=== PATIENT | female | born 1995 | race African-American/Black ===

== ENCOUNTER 2017-06-05 14:34 | Emergency (ER) | payer MEDICAID, OTHER ==
[~2017-06-05] VITALS: Ht 175.3 cm; Wt 60.8 kg
[2017-06-05 14:35] VITALS: BP 124/81
== END 2017-06-05 15:25 | disposition left against medical advice (07) ==
LOC: ED 15:19
DX: T74.21XA Adult sexual abuse, confirmed, initial encounter (principal); Z53.21 Procedure and treatment not carried out due to patient leaving prior to being seen by health care provider; Y93.89 Activity, other specified; Y99.8 Other external cause status; Y92.89 Other specified places as the place of occurrence of the external cause; Y07.9 Unspecified perpetrator of maltreatment and neglect

== ENCOUNTER 2017-06-05 16:27 | Emergency (ER) | payer MEDICAID, OTHER ==
[~2017-06-05] VITALS: Ht 175.3 cm; Wt 60.7 kg
[2017-06-05] MEDS ORDERED: AZITHROMYCIN 500 MG TABLET PO ONE (17:30)
[2017-06-05] MEDS ORDERED: CEFTRIAXONE 250 MG IM ONE (17:30)
[2017-06-05] MEDS ORDERED: AZITHROMYCIN 500 MG TABLET ONE (17:45)
[2017-06-05] MEDS ORDERED: CEFTRIAXONE 250 MG ONE (17:46)
[2017-06-05] MEDS ORDERED: LIDOCAINE 1%, 20ML ONE (17:46)
[2017-06-05 17:55] VITALS: BP 113/75
== END 2017-06-05 18:10 | disposition home or self-care (01) ==
LOC: ED 18:04
DX: T74.21XA Adult sexual abuse, confirmed, initial encounter (principal); F17.200 Nicotine dependence, unspecified, uncomplicated; F12.10 Cannabis abuse, uncomplicated
CPT/HCPCS: 96372; 99283; J0696

== ENCOUNTER 2017-06-09 18:00 | Emergency (ER) | payer SELFPAY ==
[~2017-06-09] VITALS: Ht 175.3 cm; Wt 58.5 kg
[2017-06-09] MEDS ORDERED: SODIUM CHLORIDE 0.9% 1,000ML IVBOLUS ONE (18:30)
[2017-06-09] MEDS ORDERED: FAMOTIDINE 20 MG/2 ML IVP ONE (18:30)
[2017-06-09] MEDS ORDERED: SODIUM CHLORIDE FLUSH 10ML SYR IVF ONE (18:30)
[2017-06-09] MEDS ORDERED: ONDANSETRON 2MG/ML, 2ML IVPush ONE (18:30)
[2017-06-09] MEDS ORDERED: MAALOX/HYOSCYAMINE/LIDOCAINE 45 ML BTL PO ONE (18:30)
[2017-06-09] MEDS ORDERED: MAALOX/HYOSCYAMINE/LIDOCAINE 45 ML BTL ONE (18:41)
[2017-06-09] MEDS ORDERED: ONDANSETRON 2MG/ML, 2ML ONE (18:41)
[2017-06-09] MEDS ORDERED: FAMOTIDINE 20 MG/2 ML ONE (18:41)
[2017-06-09 19:05] LABS: HEMATOCRIT 45.1 % (34.6-47.8); HEMOGLOBIN 15.2 g/dL (11.7-16.4); WHITE BLOOD COUNT 7.3 x10^3/uL (3.4-10)
[2017-06-09 19:16] LABS: BLOOD UREA NITROGEN 11 mg/dL (7-18)
[2017-06-09 19:19] LABS: ASPARTATE AMINO TRANSFERASE 21 U/L (15-37)
[2017-06-09 20:29] VITALS: BP 124/78
[2017-06-09] MEDS ORDERED: DICYCLOMINE 10 MG/ML, 2ML IM ONE (20:30)
== END 2017-06-09 20:42 | disposition home or self-care (01) ==
LOC: ED 18:54
DX: R19.7 Diarrhea, unspecified (principal); R11.2 Nausea with vomiting, unspecified; R10.30 Lower abdominal pain, unspecified
CPT/HCPCS: 36415; 74020; 80053; 81001; 84703; 85025; 87086; 96361; 96372; 96374; 96375; 99285; J0500; J2405; J7030; S0028

== ENCOUNTER 2017-12-08 05:25 | Emergency (ER) | payer SELFPAY ==
[~2017-12-08] VITALS: Ht 172.7 cm; Wt 65.0 kg
[2017-12-08 05:28] VITALS: BP 129/80
[2017-12-08] MEDS ORDERED: CARBAMIDE PEROXIDE EAR DROPS 6.5%, 15ML ONE (05:54)
[2017-12-08] MEDS ORDERED: CARBAMIDE PEROXIDE EAR DROPS 6.5%, 15ML EACH EAR ONE (06:30)
== END 2017-12-08 07:36 | disposition home or self-care (01) ==
LOC: ED 07:06
DX: H61.23 Impacted cerumen, bilateral (principal); H66.92 Otitis media, unspecified, left ear; F17.200 Nicotine dependence, unspecified, uncomplicated
CPT/HCPCS: 69209; 99283

== ENCOUNTER 2017-12-26 02:51 | Emergency (ER) | payer MEDICAID, OTHER ==
[~2017-12-26] VITALS: Ht 170.2 cm; Wt 60.0 kg
[2017-12-26 02:53] VITALS: BP 129/88
== END 2017-12-26 04:25 | disposition home or self-care (01) ==
LOC: ED 04:19
DX: T76.21XA Adult sexual abuse, suspected, initial encounter (principal); X58.XXXA Exposure to other specified factors, initial encounter; Y93.89 Activity, other specified; Y92.89 Other specified places as the place of occurrence of the external cause; Y99.8 Other external cause status
CPT/HCPCS: 99281

== ENCOUNTER 2018-03-09 18:08 | Emergency (ER) | payer MEDICAID ==
[~2018-03-09] VITALS: Ht 172.7 cm; Wt 63.1 kg
[2018-03-09 20:02] LABS: AMPHETAMINE SCREEN, URINE Negative (Negative); BARBITURATE SCREEN, URINE Negative (Negative); BENZODIAZEPINE SCREEN, URINE Negative (Negative); CANNABINOID SCREEN, URINE Positive (Negative); COCAINE SCREEN, URINE Negative (Negative); METHADONE SCREEN, URINE Negative (Negative); OPIATE SCREEN, URINE Negative (Negative)
[2018-03-09 20:07] VITALS: BP 113/72
== END 2018-03-09 21:21 | disposition home or self-care (01) ==
LOC: ED 21:00
DX: T76.21XA Adult sexual abuse, suspected, initial encounter (principal); M54.2 Cervicalgia; Z79.899 Other long term (current) drug therapy; Y04.8XXA Assault by other bodily force, initial encounter; Y93.89 Activity, other specified; Y92.89 Other specified places as the place of occurrence of the external cause; Y99.8 Other external cause status
CPT/HCPCS: 72050; 80307; 99285

== ENCOUNTER 2018-09-06 01:56 | Emergency (ER) | payer MEDICAID ==
[~2018-09-06] VITALS: Ht 172.7 cm; Wt 63.7 kg
[2018-09-06 01:57] VITALS: BP 133/74
[2018-09-06 03:35] LABS: BASOPHILS # (AUTO) 0.03 x10^3/uL (0-0.1); BASOPHILS % (AUTO) 1 % (0-1); EOSINOPHILS # (AUTO) 0.05 x10^3/uL (0-0.4); EOSINOPHILS % (AUTO) 1 % (1-7); LYMPHOCYTES # (AUTO) 2.63 x10^3/uL (1-3.4); LYMPHOCYTES % (AUTO) 49 % (22-44); MD NO; MEAN CORPUSCULAR HGB CONC 33.8 g/dL (32.4-35.8); MEAN CORPUSCULAR VOLUME 94.7 fL (80-100); MEAN PLATELET VOLUME 7.2 fL (7.4-10.4); MONOCYTES # (AUTO) 0.44 x10^3/uL (0.2-0.8); MONOCYTES % (AUTO) 8 % (2-9); NEUTROPHILS # (AUTO) 2.21 x10^3/uL (1.8-6.8); NEUTROPHILS % (AUTO) 41 % (42-75); PLATELET COUNT 206 x10^3/uL (130-400); RED BLOOD COUNT 4.63 x10^6/uL (3.82-5.3); RED CELL DISTRIBUTION WIDTH 14.6 % (9.6-15.2)
[2018-09-06 03:44] LABS: ALANINE AMINOTRANSFERASE 22 U/L (12-78); ALBUMIN 4.1 g/dL (3.4-5.0); ANION GAP 8 mmol/L (5-15); CALCIUM 9.5 mg/dL (8.5-10.1); CHLORIDE 108 mmol/L (98-107); CREATININE 0.98 mg/dL (0.55-1.02)
[2018-09-06 03:48] LABS: ALKALINE PHOSPHATASE 72 U/L (45-117); BILIRUBIN,TOTAL 0.5 mg/dL (0.2-1.0); TOTAL PROTEIN 7.5 g/dL (6.4-8.2)
[2018-09-06 03:48] LABS: AMPHETAMINE SCREEN, URINE Negative (Negative); BARBITURATE SCREEN, URINE Negative (Negative); BENZODIAZEPINE SCREEN, URINE Negative (Negative); CANNABINOID SCREEN, URINE Positive (Negative); COCAINE SCREEN, URINE Negative (Negative); METHADONE SCREEN, URINE Negative (Negative); OPIATE SCREEN, URINE Negative (Negative)
[2018-09-06 03:49] LABS: ACETAMINOPHEN < 2 mcg/mL (10-30); SALICYLATE LEVEL < 1.7 mg/dL (2.8-20.0)
== END 2018-09-06 06:20 | disposition home or self-care (01) ==
LOC: ED 02:57
DX: F41.1 Generalized anxiety disorder (principal); F17.200 Nicotine dependence, unspecified, uncomplicated; Z72.9 Problem related to lifestyle, unspecified; Z91.14 Patient's other noncompliance with medication regimen; Z63.8 Other specified problems related to primary support group; Z75.9 Unspecified problem related to medical facilities and other health care
CPT/HCPCS: 36415; 80053; 80307; 80329; 84703; 85025; 99284; G0480

== ENCOUNTER 2019-09-20 11:30 | Emergency (ER) | payer MEDICAID ==
[~2019-09-20] VITALS: Ht 175.3 cm; Wt 84.9 kg
[2019-09-20 11:32] VITALS: BP 118/76
[2019-09-20] MEDS ORDERED: AZITHROMYCIN 500 MG TABLET PO ONE (12:30)
[2019-09-20] MEDS ORDERED: CEFTRIAXONE 250 MG IM ONE (12:30)
[2019-09-20 12:39] LABS: CLUE CELLS NONE SEEN (NONE SEEN); WET PREP WBCS NONE SEEN (FEW)
[2019-09-20] MEDS ORDERED: CEFTRIAXONE 250 MG ONE (12:49)
[2019-09-20] MEDS ORDERED: LIDOCAINE-MPF 1%, 2ML ONE (12:49)
[2019-09-20] MEDS ORDERED: AZITHROMYCIN 500 MG TABLET ONE (12:49)
--- NOTE | 2019-09-20 12:56 | NUR ---
TASK RN: MEDICATED PER EMAR REVIEWED POC. INCLUDING IMPORTANCE OF FOLLOWING UP WITH HEALTH DEPARTMENT FOR VIRAL STI CHECK
== END 2019-09-20 13:16 | disposition home or self-care (01) ==
LOC: ED 13:10
DX: N76.0 Acute vaginitis (principal); B00.9 Herpesviral infection, unspecified
CPT/HCPCS: 87210; 87491; 87591; 87808; 96372; 99283; J0696

== ENCOUNTER 2020-08-03 19:14 | Emergency (ER) | payer SELFPAY ==
[~2020-08-03] VITALS: Ht 175.3 cm; Wt 73.5 kg
[2020-08-03] MEDS ORDERED: SODIUM CHLORIDE FLUSH 10ML SYR IVF ONE (19:30)
[2020-08-03 19:54] LABS: ALANINE AMINOTRANSFERASE 20 U/L (12-78); ALBUMIN 3.8 g/dL (3.4-5.0); ANION GAP 3 mmol/L (5-15); CALCIUM 9.1 mg/dL (8.5-10.1); CHLORIDE 106 mmol/L (98-107)
[2020-08-03 19:55] LABS: BASOPHILS % (AUTO) 1 % (0-1); EOSINOPHILS % (AUTO) 2 % (1-7); LYMPHOCYTES % (AUTO) 51 % (22-44); MEAN CORPUSCULAR HEMOGLOBIN 30.7 pg (27.0-34.8); MEAN CORPUSCULAR HGB CONC 32.7 g/dL (32.4-35.8); MEAN PLATELET VOLUME 7.2 fL (7.4-10.4); MONOCYTES % (AUTO) 10 % (2-9); NEUTROPHILS % (AUTO) 38 % (42-75); PLATELET COUNT 237 x10^3/uL (130-400); RED BLOOD COUNT 4.33 x10^6/uL (3.82-5.3); RED CELL DISTRIBUTION WIDTH 14.9 % (9.6-15.2)
[2020-08-03 19:59] LABS: ALKALINE PHOSPHATASE 79 U/L (45-117); BILIRUBIN,TOTAL 0.5 mg/dL (0.2-1.0); CREATININE 0.98 mg/dL (0.55-1.02); TOTAL PROTEIN 7.1 g/dL (6.4-8.2)
[2020-08-03 20:39] LABS: MICROSCOPIC INDICATED
--- NOTE | 2020-08-03 20:41 | NUR ---
pt reports coming into ED for abdominal pain and left leg pain, pt states her left knee is painful and sitff, denies trauma, abdomen was nauseated and she was vomitting two days prior but is no longer having nausea. pt states its just a cramping pain now. pt resting on gurney, provided warm blankets, ua walked to lab. nad, call light on lap. wctm. pt placed on spo2/bp monitoring at this time. waiting for us/ua results.
[2020-08-03 20:44] LABS: MD SCAN
[2020-08-03] MEDS ORDERED: IBUPROFEN 800 MG TABLET ONE (21:29)
[2020-08-03] MEDS ORDERED: IBUPROFEN 800 MG TABLET PO ONE (21:30)
[2020-08-03 21:31] VITALS: BP 104/67
--- NOTE | 2020-08-03 21:31 | NUR ---
Patient given discharge instructions and they have confirmed that they understand the instructions. Patient ambulatory with SLIGHT LIMP, NAD, DENIES ADDITIONAL NEEDS OR QUESTIONS, PROVIDED CRACKERS FOR COMFORT AT TIME OF DC. NO PERSONAL BELONGINGS LEFT IN ROOM AFTER DC
--- NOTE | 2020-08-03 22:07 | NUR ---
pt provided snacks for dc. hansen.
== END 2020-08-03 22:08 | disposition home or self-care (01) ==
LOC: ED 20:30
DX: M25.562 Pain in left knee (principal)
CPT/HCPCS: 36415; 80053; 81001; 84703; 85025; 99285

== ENCOUNTER 2020-08-26 19:26 | Emergency (ER) | payer OTHER ==
[~2020-08-26] VITALS: Ht 175.3 cm; Wt 77.5 kg
[2020-08-26 19:35] VITALS: BP 132/81
[2020-08-26] MEDS ORDERED: KETOROLAC 30 MG/1 ML ONE (19:57)
[2020-08-26] MEDS ORDERED: KETOROLAC 30 MG/1 ML IM ONE (20:00)
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
== END 2020-08-26 22:11 | disposition home or self-care (01) ==
LOC: ED 19:57
DX: R10.84 Generalized abdominal pain (principal); N94.6 Dysmenorrhea, unspecified
CPT/HCPCS: 99282

== ENCOUNTER 2020-11-11 06:12 | Emergency (ER) | payer SELFPAY ==
[~2020-11-11] VITALS: Ht 175.3 cm; Wt 72.3 kg
--- NOTE | 2020-11-11 06:52 | NUR ---
bricklayer's assistant note: Pt to room from lobby.
--- NOTE | 2020-11-11 07:00 | NUR ---
PATIENT WALKED BACK FROM TRIAGE WITH CHIEF C/O "I FEEL LIKE I'M GOING TO COLLAPSE." PER PATIENT SHE WAS RELEASED FROM HALFWAY 3 DAYS AGO, SHE STATES THAT SHE HAS BEEN MOVING "SLOWLY" EVER SINCE, AND FEELS LIKE "LIMBS ARE GOING NUMB." "I HAVE GAS THAT IS REALLY STINKY, AND SOMETIMES MY NECK POPS AND IT SCARES ME." PATIENT IS CRYING, VSS, NO OBVIOUS TRAUMA, CALL LIGHT WITHIN REACH.
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
[2020-11-11] MEDS ORDERED: IBUPROFEN 600 MG TABLET PO ONE (07:30)
[2020-11-11] MEDS ORDERED: ACETAMINOPHEN 325 MG TABLET PO ONE (07:30)
[2020-11-11 08:08] LABS: BASOPHILS % (AUTO) 0 % (0-1); EOSINOPHILS % (AUTO) 1 % (1-7); LYMPHOCYTES % (AUTO) 26 % (22-44); MEAN CORPUSCULAR HEMOGLOBIN 31.2 pg (27.0-34.8); MEAN CORPUSCULAR HGB CONC 33.4 g/dL (32.4-35.8); MEAN PLATELET VOLUME 7.2 fL (7.4-10.4); MONOCYTES % (AUTO) 11 % (2-9); NEUTROPHILS % (AUTO) 62 % (42-75); PLATELET COUNT 192 x10^3/uL (130-400); RED BLOOD COUNT 4.49 x10^6/uL (3.82-5.3); RED CELL DISTRIBUTION WIDTH 14.1 % (9.6-15.2)
[2020-11-11 08:10] LABS: MD NO
--- NOTE | 2020-11-11 08:14 | NUR ---
BREAKFAST TRAY PROVIDED.
[2020-11-11 08:21] LABS: ALANINE AMINOTRANSFERASE 19 U/L (12-78); ALBUMIN 3.8 g/dL (3.4-5.0); ANION GAP 6 mmol/L (5-15); CALCIUM 9.5 mg/dL (8.5-10.1); CHLORIDE 109 mmol/L (98-107); CREATININE 0.84 mg/dL (0.55-1.02)
[2020-11-11 08:25] LABS: ALKALINE PHOSPHATASE 70 U/L (45-117); BILIRUBIN,TOTAL 0.4 mg/dL (0.2-1.0); TOTAL PROTEIN 7.4 g/dL (6.4-8.2)
[2020-11-11 08:27] LABS: SALICYLATE LEVEL < 1.7 mg/dL (2.8-20.0)
--- NOTE | 2020-11-11 08:45 | NUR ---
PATIENT AMBULATED TO BATHROOM WITH SLOW, BUT STEADY GAIT FOR URINE SAMPLE.
[2020-11-11 08:54] VITALS: BP 118/73
--- NOTE | 2020-11-11 08:54 | NUR ---
[facility] URINE SAMPLE COLLECTED AND SENT TO LAB.
--- NOTE | 2020-11-11 09:10 | NUR ---
PATIENT BELONGINGS PLACED IN BAG AND LOCKED IN CABINET, SUICIDE PRECAUTIONS IN PLACE.
[2020-11-11 09:21] LABS: AMPHETAMINE SCREEN, URINE Negative (Negative); BARBITURATE SCREEN, URINE Negative (Negative); BENZODIAZEPINE SCREEN, URINE Negative (Negative); CANNABINOID SCREEN, URINE Positive (Negative); COCAINE SCREEN, URINE Positive (Negative); METHADONE SCREEN, URINE Negative (Negative); OPIATE SCREEN, URINE Negative (Negative)
--- NOTE | 2020-11-11 09:47 | NUR ---
REPORT RECEIVED FROM KARTHIK PLATA. [facility]
--- NOTE | 2020-11-11 10:29 | NUR ---
PT RESTING IN [facility]. SITTER OUTSIDE OF ROOM. NAD.
--- NOTE | 2020-11-11 11:50 | NUR ---
PT CONTINUES TO REST IN [facility]. NAD. WILL CONTINUE TO MONITOR
--- NOTE | 2020-11-11 12:29 | NUR ---
REPORT RECEIVED FROM SALIMA ANGELES. ASSUMING CARE AT THIS TIME. PT SLEEPING ON GURNEY. RESP EVEN AND UNLABORED. ROOM SECURE. AWAITING PSYCH EVAL.
--- NOTE | 2020-11-11 13:02 | NUR ---
LORRAINE, PSYCH BEATER WORKER HELPER, STATES PT IN CLEARED FROM PSYCH.
--- NOTE | 2020-11-11 13:09 | NUR ---
PT BELONGINGS RETURNED. PT STATES THAT I AM NOT ALLOWED TO TALK TO HER AGAIN. PT REFUSING TO TAKE DC PAPERWORK.
== END 2020-11-11 13:22 | disposition home or self-care (01) ==
LOC: ED 06:36
DX: B34.9 Viral infection, unspecified (principal); Z20.822 Contact with and (suspected) exposure to COVID-19
CPT/HCPCS: 36415; 80053; 80299; 80307; 80320; 80329; 84703; 85025; 87635; 99283; G0480

== ENCOUNTER 2021-01-21 21:59 | Emergency (ER) | payer SELFPAY ==
[~2021-01-21] VITALS: Ht 175.3 cm; Wt 73.8 kg
[2021-01-21 22:02] VITALS: BP 115/64
== END 2021-01-21 22:49 | disposition home or self-care (01) ==
LOC: ED 22:17
DX: L03.012 Cellulitis of left finger (principal); Z20.822 Contact with and (suspected) exposure to COVID-19; R05 Cough; R50.9 Fever, unspecified; Z87.891 Personal history of nicotine dependence
CPT/HCPCS: 99283; U0003

== ENCOUNTER 2021-02-14 23:11 | Emergency (ER) | payer SELFPAY ==
[~2021-02-14] VITALS: Ht 175.3 cm; Wt 62.0 kg
[2021-02-14 23:28] VITALS: BP 129/75
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
== END 2021-02-14 23:42 | disposition home or self-care (01) ==
LOC: ED 23:30
DX: F39 Unspecified mood [affective] disorder (principal); R45.851 Suicidal ideations
CPT/HCPCS: 99285

== ENCOUNTER 2021-02-16 04:36 | Emergency (ER) | payer SELFPAY ==
[~2021-02-16] VITALS: Ht 175.3 cm; Wt 68.8 kg
--- NOTE | 2021-02-16 04:57 | NUR ---
PT C/O RIGHT ANKLE/FOOT PAIN AFTER GLF 3-4 DAYS AGO. PT STATES SHE TRIPPED WHILE RUNNING AND HAS HAD PAIN SINCE. POSITIVE CMS IN EXT. NO SWELLING NOTED.
--- NOTE | 2021-02-16 06:24 | NUR ---
PT NOW COMPLAINING OF NECK/BACK PAIN.
--- NOTE | 2021-02-16 06:24 | NUR ---
MD ADVISED OF PATIENTS NEW COMPLAINTS. MD BEDSIDE TO EXAMINE.
[2021-02-16 06:25] VITALS: BP 135/93
--- NOTE | 2021-02-16 06:35 | NUR ---
PT ELOPED PRIOR TO SPLINT BEING PLACED AND BEFORE REC'ING DISCHARGE INSTRUCTIONS. DISCHARGE PAPERWORK LEFT AT CHARGE DESK.
== END 2021-02-16 06:37 | disposition left against medical advice (07) ==
LOC: ED 05:06
DX: S92.351A Displaced fracture of fifth metatarsal bone, right foot, initial encounter for closed fracture (principal); F17.200 Nicotine dependence, unspecified, uncomplicated; W18.30XA Fall on same level, unspecified, initial encounter; Y93.89 Activity, other specified; Y92.410 Unspecified street and highway as the place of occurrence of the external cause; Y99.8 Other external cause status
CPT/HCPCS: 99283

== ENCOUNTER 2021-06-12 10:09 | Emergency (ER) | payer MEDICAID ==
[~2021-06-12] VITALS: Ht 175.3 cm; Wt 71.2 kg
--- NOTE | 2021-06-12 10:26 | NUR ---
LAURA RN: BETSY GALVAN NOTIFIED.
--- NOTE | 2021-06-12 13:11 | NUR ---
PATIENT ROOMED FROM [facility]
[2021-06-12] MEDS ORDERED: CEFTRIAXONE 1,000 MG IM ONE (14:00)
[2021-06-12] MEDS ORDERED: CEFTRIAXONE 1,000 MG ONE (14:18)
--- NOTE | 2021-06-12 14:39 | NUR ---
PT SEEN BY COLE AND CHIARA. DENIES OTHER PHYSICAL COMPLAINT BESIDES SORE THROAT AND COUGH. PT MEDICATED PER ORDERS. CONT TO MONITOR.
--- NOTE | 2021-06-12 15:00 | NUR ---
PT GIVEN MEAL TRAY.
--- NOTE | 2021-06-12 15:35 | NUR ---
PT D/C'D PER ORDERS. PT VERBALIZED UNDERSTANDING OF D/C ORDERS. PT WITH STEADY GAIT UPON D/C, HAS ALL OWN BELONGINGS.
[2021-06-12 15:44] VITALS: BP 112/78
== END 2021-06-12 15:48 | disposition home or self-care (01) ==
LOC: ED 10:36
DX: S80.211A Abrasion, right knee, initial encounter (principal); Z20.822 Contact with and (suspected) exposure to COVID-19; F17.200 Nicotine dependence, unspecified, uncomplicated; T76.21XA Adult sexual abuse, suspected, initial encounter; Y93.89 Activity, other specified; Y92.89 Other specified places as the place of occurrence of the external cause; Y99.8 Other external cause status
CPT/HCPCS: 36415; 84702; 86705; 86706; 86803; 87340; 87806; 96372; 99283; J0696; U0003; U0005; G0475

== ENCOUNTER 2021-06-27 22:33 | Emergency (ER) | payer MEDICAID ==
[~2021-06-27] VITALS: Ht 175.3 cm; Wt 75.6 kg
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
--- NOTE | 2021-06-27 23:06 | NUR ---
URINE COLLECTED AND SENT TO LAB
--- NOTE | 2021-06-27 23:13 | NUR ---
LABS AT BEDSIDE.
[2021-06-27 23:31] LABS: AMPHETAMINE SCREEN, URINE Negative (Negative); BARBITURATE SCREEN, URINE Negative (Negative); BENZODIAZEPINE SCREEN, URINE Negative (Negative); CANNABINOID SCREEN, URINE Positive (Negative); COCAINE SCREEN, URINE Negative (Negative); METHADONE SCREEN, URINE Negative (Negative); OPIATE SCREEN, URINE Negative (Negative)
--- NOTE | 2021-06-27 23:56 | NUR ---
PSYCH PRECAUTIONS MAINTAINED. GARAGE DOORS LOCKED. SITTER AT BEDSIDE. PT SLEEPING IN [facility].
[2021-06-27 23:57] LABS: BASOPHILS % (AUTO) 0 % (0-1); EOSINOPHILS % (AUTO) 2 % (1-7); LYMPHOCYTES % (AUTO) 46 % (22-44); MEAN CORPUSCULAR HEMOGLOBIN 32.1 pg (27.0-34.8); MEAN CORPUSCULAR HGB CONC 33.1 g/dL (32.4-35.8); MEAN PLATELET VOLUME 7.1 fL (7.4-10.4); MONOCYTES % (AUTO) 7 % (2-9); NEUTROPHILS % (AUTO) 45 % (42-75); PLATELET COUNT 262 x10^3/uL (130-400); RED BLOOD COUNT 4.18 x10^6/uL (3.82-5.3); RED CELL DISTRIBUTION WIDTH 15.4 % (9.6-15.2)
[2021-06-28 00:08] LABS: ANION GAP 5 mmol/L (5-15); CALCIUM 8.7 mg/dL (8.5-10.1); CHLORIDE 108 mmol/L (98-107); SALICYLATE LEVEL 2.4 mg/dL (2.8-20.0)
[2021-06-28 00:20] LABS: ALANINE AMINOTRANSFERASE 23 U/L (12-78); ALKALINE PHOSPHATASE 79 U/L (45-117); BILIRUBIN,TOTAL 0.2 mg/dL (0.2-1.0); TOTAL PROTEIN 6.7 g/dL (6.4-8.2)
--- NOTE | 2021-06-28 01:05 | NUR ---
PSYCH PRECAUTIONS MAINTAINED. GARAGE DOORS LOCKED. SITTER AT BEDSIDE. PT SLEEPING IN [facility].
--- NOTE | 2021-06-28 01:30 | NUR ---
[facility] DOES NOT ACCEPT PT INSURANCE
--- NOTE | 2021-06-28 01:36 | NUR ---
FAXED PACKET TO [facility], [facility], [facility]
--- NOTE | 2021-06-28 01:53 | NUR ---
[facility]) NO FEMALE BEDS AT THIS TIME
--- NOTE | 2021-06-28 02:06 | NUR ---
[facility] NO BEDS AT THIS TIME
--- NOTE | 2021-06-28 03:52 | NUR ---
PSYCH PRECAUTIONS MAINTAINED. GARAGE DOORS LOCKED. SITTER AT BEDSIDE. PT SLEEPING IN [facility].
--- NOTE | 2021-06-28 05:20 | NUR ---
[facility] BEDS PROVIDED FOR PT
--- NOTE | 2021-06-28 05:31 | NUR ---
PSYCH PRECAUTIONS MAINTAINED. GARAGE DOORS LOCKED. SITTER AT BEDSIDE. PT SLEEPING IN [facility].
--- NOTE | 2021-06-28 06:53 | NUR ---
CARE TRANSFERED. REPORT GIVEN TO KARTHIK VALDOVINOS
--- NOTE | 2021-06-28 07:00 | NUR ---
REPORT RECEIVED, CARE ASSUMED. PT IN SECURE ROOM WITH SITTER IN SIGHT OF PT. PT SLEEPING AT THIS TIME.
--- NOTE | 2021-06-28 07:31 | NUR ---
[facility] TO ACCEPT PT PER ADMIT RN LUCA, VIA DR TOMAS WITH TRANSPORT REQUESTED ~[phone] TODAY. YONAS CHARGE & PRIMARY RN NOTIFIED. Addendum: 06/28/21 at 0830 by CHARLES THROUGHPUT: [facility] TO ACCEPT PT PER ADMIT RN LUCA, VIA DR TOMAS WITH TRANSPORT REQUESTED ~[phone] TODAY. YONAS CHARGE & PRIMARY RN NOTIFIED.
--- NOTE | 2021-06-28 08:00 | NUR ---
PT CONT SLEEPING IN SECURE ROOM WITH SITTER WITHING SIGHT. BREAKFAST AVAILABLE WHEN PT AWAKE.
--- NOTE | 2021-06-28 08:28 | NUR ---
THROUGHPUT: TRANSPORT ARRANGED WITH [facility] & [facility] FOR 1030 TODAY VIA AMBULANCE.
--- NOTE | 2021-06-28 09:33 | NUR ---
PT AROUSES TO NAME. PT COOPERATIVE WITH V/S. PROVIDED WITH BREAKFAST AND PO FLUIDS. NO OTHER NEEDS EXPRESSED AT THIS TIME. WAITING FOR TRANSPORT TO [facility]. CONT IN SECURE ROOM WITH SITTER IN SIGHT.
[2021-06-28 09:35] VITALS: BP 102/59
--- NOTE | 2021-06-28 10:45 | NUR ---
[facility] HERE TO TRANSPORT PT TO [facility]. BELONGINS GIVEN TO EMS. PT LEFT AMB, GAIT STEADY.
== END 2021-06-28 10:59 ==
LOC: ED 23:00
DX: F32.1 Major depressive disorder, single episode, moderate (principal); R45.851 Suicidal ideations
CPT/HCPCS: 36415; 80053; 80299; 80307; 80320; 80329; 84443; 84703; 85025; 99285; G0480